=== PATIENT | female | born 1950 | race Caucasian/White ===

== ENCOUNTER 2022-05-31 10:00 | Observation (INO) ==
[~2022-05-31 10:00] MED LIST: Buffered Lidocaine 1% SYRIN 1 ml INTRADERM ONE; Famotidine IV 10 MG/ML 2 ml VIAL (20 mg) IV ONE
[2022-05-31] MEDS ORDERED: ceFAZolin 2 GM in NS PREMIX 2 GM/100 ML BAG IVPB ONE (10:17)
[2022-05-31] MEDS ORDERED: Famotidine IV 10 MG/ML 2 ml VIAL (20 mg) ONE (10:17)
[2022-05-31] MEDS: Lactated Ringers 1000 ml BAG 1,000 ML IV SCH ×2 (11:11→20:32)
[2022-05-31] MEDS ORDERED: Metoclopramide 5 MG/ML VIAL (10 mg) IV SLOW PU ONE (11:12)
[2022-05-31] MEDS ORDERED: Metoclopramide 5 MG/ML VIAL (10 mg) ONE ×2 (11:26→12:51)
[2022-05-31] MEDS ORDERED: Propofol 10 MG/ML 20 ML BTL ONE (12:51)
[2022-05-31] MEDS ORDERED: Ondansetron 4 mg VIAL 2 MG/ML 2 ml VIAL ONE ×2 (12:51→15:49)
[2022-05-31] MEDS ORDERED: Lidocaine 2% PF 5 ML VIAL ONE (12:52)
[2022-05-31] MEDS ORDERED: ROPIVACAINE 5 MG/ML 30 ML BTL (0.5%) ONE ×2 (14:09→16:58)
[2022-05-31] MEDS ORDERED: fentaNYL 100 mcg/2 ml 50 MCG/ML VIAL ONE (14:09)
[2022-05-31] MEDS ORDERED: Midazolam 5 mg/5 ml VIAL 1 mg/ml 5 ml VIAL (5 mg) ONE (14:09)
[2022-05-31] MEDS ORDERED: Lactulose 30 ml UDC PO PRN ×2 (14:54→18:49)
[2022-05-31] MEDS ORDERED: Morphine 2 MG/ML SYRINGE IV PRN ×2 (14:54→18:49)
[2022-05-31] MEDS ORDERED: Ondansetron 4 mg VIAL 2 MG/ML 2 ml VIAL IV PRN ×2 (14:54→18:49)
[2022-05-31] MEDS ORDERED: Ondansetron ODT 4 mg TAB 4 MG TAB PO PRN ×2 (14:54→18:49)
[2022-05-31] MEDS ORDERED: Magnesium Hydroxide LIQ 30 ML UDC PO PRN ×2 (14:54→18:49)
[2022-05-31] MEDS ORDERED: ceFAZolin 1 GM ADVAN 1 GM in NS 0.9% 50 ML 50 ML IVPB SCH (15:00)
[2022-05-31] MEDS ORDERED: Lactated Ringers 1000 ml BAG 1,000 ML IV SCH ×2 (15:00→19:00)
[2022-05-31] MEDS ORDERED: Midazolam 2 mg/2 ml VIAL 1 mg/ml 2 ml VIAL (2 mg) ONE (15:18)
[2022-05-31] MEDS ORDERED: fentaNYL 100 mcg/2 ml 50 MCG/ML VIAL IV PRN ×2 (15:32→18:49)
[2022-05-31] MEDS ORDERED: Naloxone 0.4 mg VIAL 0.4 mg/ml 1 ml VIAL IV PRN ×2 (15:32→18:49)
[2022-05-31] MEDS ORDERED: Acetaminophen IV 1 GM/100ML 1,000 MG/100 ML BAG IV ONE (17:13)
[2022-05-31] MEDS ORDERED: Magnesium Hydroxide LIQ 30 ML UDC PO SCH (21:00)
[2022-05-31] MEDS: Magnesium Hydroxide LIQ 30 ML UDC PO SCH (21:20)
[2022-06-01] MEDS: ceFAZolin 1 GM ADVAN 1 GM in NS 0.9% 50 ML 50 ML IVPB SCH ×3 (00:39→15:00)
[2022-06-01] MEDS: Magnesium Hydroxide LIQ 30 ML UDC PO SCH (07:54)
[2022-06-01] MEDS ORDERED: Vitamin THERAPEUTIC TAB PO SCH ×2 (09:00)
[2022-06-01 09:58] LABS: Hematocrit 30 % (35-47); Hemoglobin 9.8 g/dL (12.0-16.0); Mean Platelet Volume 7.2 fL (7.4-10.4); Platelet Count 297 10^3/uL (150-450)
[2022-06-01 12:09] VITALS: BP 112/53
== END 2022-06-01 15:45 | disposition home or self-care (01) ==
LOC: OR 10:00 → SSU 10:00 → OR 18:41
PROVIDERS: ADMIT Orthopaedic Surgery Adult Reconstructive Orthopaedic Surgery; ATTEND Orthopaedic Surgery Adult Reconstructive Orthopaedic Surgery

== ENCOUNTER 2022-10-29 07:25 | Observation (INO) ==
[~2022-10-29 07:25] MED LIST changes: -Famotidine IV 10 MG/ML 2 ml VIAL (20 mg) IV ONE; +Lactated Ringers 1000 ml BAG 1,000 ML IV SCH; +Lidocaine 2% PF 5 ML VIAL ONE; +Midazolam 2 mg/2 ml VIAL 1 mg/ml 2 ml VIAL (2 mg) ONE; +Ondansetron 4 mg VIAL 2 MG/ML 2 ml VIAL ONE; +Propofol 10 MG/ML 20 ML BTL ONE; +fentaNYL 100 mcg/2 ml 50 MCG/ML VIAL ONE
[2022-10-29] MEDS ORDERED: ceFAZolin 2 GM in NS PREMIX 2 GM/100 ML BAG IVPB ONE (07:45)
[2022-10-29] MEDS ORDERED: Chlorhexidine MOUTHWASH 0.12% 15 ML UDC ONE (07:45)
[2022-10-29] MEDS ORDERED: Prochlorperazine 5 mg/ml 2 ml VIAL (10 mg) IV PRN (08:15)
[2022-10-29] MEDS ORDERED: Naloxone 0.4 mg VIAL 0.4 mg/ml 1 ml VIAL IV PRN (08:15)
[2022-10-29] MEDS ORDERED: fentaNYL 100 mcg/2 ml 50 MCG/ML VIAL IV PRN (08:15)
[2022-10-29 08:22] LABS: Rapid COVID-19 Molecular Undetected (Undetected)
[2022-10-29] MEDS ORDERED: Rocuronium 50 mg VIAL 10 mg/ml 5 ml VIAL (50 mg) ONE (08:33)
[2022-10-29] MEDS ORDERED: Dexamethasone IV 4 MG/ML VIAL 1 ml VIAL ONE ×2 (08:34→10:30)
[2022-10-29] MEDS ORDERED: Lidocaine 1% w EPI 1:200,000 SDV 30 ML VIAL ONE (09:21)
[2022-10-29] MEDS ORDERED: Gelfoam Sponge SIZE 100 SPONGE ONE (09:21)
[2022-10-29] MEDS ORDERED: Thrombin 5,000 UNITS 1 APPLIC KIT - topical use - TOPICAL ONE (09:21)
[2022-10-29] MEDS ORDERED: ceFAZolin VIAL VIAL ONE (09:21)
[2022-10-29] MEDS ORDERED: Acetaminophen IV 1 GM/100ML 1,000 MG/100 ML BAG IV ONE (10:12)
[2022-10-29] MEDS ORDERED: Phenylephrine 40 mcg/mL 10mL (400mcg) SYRINGE ONE (10:19)
[2022-10-29] MEDS ORDERED: Glycopyrrolate IV 0.2 MG/ML 1 ML VIAL ONE (10:25)
[2022-10-29] MEDS ORDERED: Ondansetron 4 mg VIAL 2 MG/ML 2 ml VIAL ONE ×2 (10:30→11:51)
[2022-10-29] MEDS ORDERED: Sodium Chloride 0.9% 10 ML ONE (10:58)
[2022-10-29] MEDS ORDERED: Ondansetron 4 mg VIAL 2 MG/ML 2 ml VIAL IV PRN (11:22)
[2022-10-29] MEDS ORDERED: HYDROcodone/ACETAMIN 5/325 mg TAB PO PRN ×2 (11:22)
[2022-10-29] MEDS ORDERED: Morphine 2 MG/ML SYRINGE IV PRN (11:22)
[2022-10-29] MEDS ORDERED: Senna TAB 8.6 mg TAB PO PRN (11:22)
[2022-10-29] MEDS: Lactated Ringers 1000 ml BAG 1,000 ML IV SCH (15:37)
[2022-10-29] MEDS ORDERED: CMCS:Estradiol 1 mg TAB (NF) PO SCH (21:00)
[2022-10-30] MEDS: Lactated Ringers 1000 ml BAG 1,000 ML IV SCH (04:51)
[2022-10-30] MEDS ORDERED: Calcium (OSCAL) 500 mg TAB PO SCH (09:00)
[2022-10-30 10:38] VITALS: BP 133/80
== END 2022-10-30 11:15 | disposition home or self-care (01) ==
LOC: OR 07:25 → SSU 07:25
PROVIDERS: ADMIT Neurological Surgery; ATTEND Neurological Surgery

== ENCOUNTER 2024-03-23 07:30 | Inpatient (IN) ==
[2024-03-24] MEDS ORDERED: ceFAZolin VIAL VIAL ONE (19:33)
[2024-03-24] MEDS ORDERED: Thrombin 5,000 UNITS 1 APPLIC KIT - topical use - TOPICAL ONE (19:33)
[2024-03-24] MEDS ORDERED: Lidocaine 1% w EPI 1:200,000 SDV 30 ML VIAL ONE (19:33)
[2024-03-25] MEDS ORDERED: Chlorhexidine MOUTHWASH 0.12% 15 ML UDC ONE (05:38)
[2024-03-25] MEDS ORDERED: ceFAZolin 2 GM PREMIX 2 GM/50 ML BAG ONE (05:48)
[2024-03-25 06:14] LABS: Rapid COVID-19 Molecular Undetected (Undetected)
[2024-03-25] MEDS ORDERED: fentaNYL 250 mcg/5 ml 50 MCG/ML 5 ml VIAL (250 MCG) ONE ×2 (06:36→10:06)
[2024-03-25] MEDS ORDERED: Lidocaine 2% PF 5 ML VIAL ONE (06:36)
[2024-03-25] MEDS ORDERED: Ondansetron 4 mg VIAL 2 MG/ML 2 ml VIAL ONE (06:36)
[2024-03-25] MEDS ORDERED: Rocuronium 50 mg VIAL 10 mg/ml 5 ml VIAL (50 mg) ONE ×2 (06:36→08:18)
[2024-03-25] MEDS ORDERED: Midazolam 2 mg/2 ml VIAL 1 mg/ml 2 ml VIAL (2 mg) ONE (06:36)
[2024-03-25] MEDS ORDERED: Propofol 10 MG/ML 20 ML BTL ONE (06:36)
[2024-03-25] MEDS ORDERED: Dexamethasone IV 4 MG/ML VIAL 1 ml VIAL ONE (06:36)
[2024-03-25] MEDS ORDERED: HYDROmorphone 0.5 MG/0.5 ML SYRINGE ONE ×2 (08:18→10:55)
[2024-03-25] MEDS ORDERED: Acetaminophen IV 1 GM/100ML 1,000 MG/100 ML BAG IV ONE (08:27)
[2024-03-25] MEDS ORDERED: Phenylephrine IV 10 MG/ML 1 ml VIAL ONE (08:29)
[2024-03-25] MEDS ORDERED: Thrombin 5,000 UNITS 1 APPLIC KIT - topical use - TOPICAL ONE (10:05)
[2024-03-25] MEDS ORDERED: Calcium Carb (TUMS) 500 mg CHEW TAB PO PRN (11:22)
[2024-03-25] MEDS ORDERED: Morphine 2 MG/ML SYRINGE IV PRN (11:22)
[2024-03-25] MEDS ORDERED: Dextran 70/Hypromellose Tears Eye Drops 15 ml BTL (for Artificials Tears) BOTH EYES PRN (11:22)
[2024-03-25] MEDS ORDERED: Benzocaine/Menthol LOZ MT PRN (11:22)
[2024-03-25] MEDS ORDERED: Senna TAB 8.6 mg TAB PO PRN (11:22)
[2024-03-25] MEDS ORDERED: Ondansetron 4 mg VIAL 2 MG/ML 2 ml VIAL IV PRN ×2 (11:22→11:54)
[2024-03-25] MEDS ORDERED: Phenol 1.4% Throat Spray BTL MT PRN (11:22)
[2024-03-25] MEDS ORDERED: Magnesium Hydroxide LIQ 30 ML UDC PO PRN (11:22)
[2024-03-25] MEDS ORDERED: fentaNYL 100 mcg/2 ml 50 MCG/ML VIAL ONE (11:29)
[2024-03-25] MEDS: fentaNYL 100 mcg/2 ml 50 MCG/ML VIAL IV PRN (11:30)
[2024-03-25] MEDS ORDERED: Naloxone 0.4 mg VIAL 0.4 mg/ml 1 ml VIAL IV PRN (11:54)
[2024-03-25] MEDS ORDERED: Metoclopramide 5 MG/ML VIAL (10 mg) IV PRN (11:54)
[2024-03-25] MEDS ORDERED: NS 0.45% 1000 ml BAG 1,000 ML IV SCH (12:00)
[2024-03-25] MEDS: Lactated Ringers 1000 ml BAG 1,000 ML IV SCH ×2 (13:54→14:23)
[2024-03-25] MEDS: Acetaminophen IV 1 GM/100ML 1,000 MG/100 ML BAG IV ONE (14:22)
[2024-03-25] MEDS: Buffered Lidocaine 1% SYRIN 1 ml INTRADERM ONE (14:23)
[2024-03-25] MEDS: Scopolamine 1 mg/72hr PATCH TRANSDERM ONE (14:23)
[2024-03-25] MEDS: [UNRECOGNIZED DRUG - REMARK] INTRANASAL SCH (20:03)
[2024-03-25] MEDS: CMC:Estradiol 1 mg TAB (NF) PO SCH (20:06)
[2024-03-27 10:53] VITALS: BP 119/62
== END 2024-03-27 11:40 | disposition home or self-care (01) | DRG 451 ==
LOC: AA 03-25 05:29 → SSU 03-25 11:23
PROVIDERS: ADMIT Neurological Surgery; ATTEND Neurological Surgery